=== PATIENT | male | born 1970 | race Caucasian/White ===

== ENCOUNTER 2018-01-27 21:10 | Inpatient (IN) | payer OTHER ==
[~2018-01-27] VITALS: Ht 170.2 cm; Wt 103.6 kg
[~2018-01-27 21:10] MED LIST: ADVAIR DISKUS 51 AER INH; METOPROLOL TART25 M1 PO; ZES10 PO
[2018-01-27 22:06] LABS: UA SPECIFIC GRAVITY >=1.030 (1.005-1.035); microscopic required? YES; urine erythrocyte TRACE (NEGATIVE)
[2018-01-27 22:13] LABS: BASOPHIL % 0.6 % (0-2); CALCIUM 8.3 mg/dL (8.5-10.1); CARBON DIOXIDE 30.2 mmol/L (21-32); CREATININE SERUM 1.4 mg/dL (0.7-1.3); PLATELET COUNT 202 x10^3mcL (130-400); POTASSIUM SERUM 3.5 mmol/L (3.5-5.1); RED CELL DISTRIBUTION WIDTH 13.7 % (11.5-14.5)
[2018-01-27 22:27] LABS: BILIRUBIN TOTAL 0.37 mg/dL (0.20-1.00); FREE T4 1.15 ng/dL (0.76-1.46); TOTAL PROTEIN, SERUM 7.1 g/dL (6.4-8.2)
[2018-01-27 22:34] LABS: ALBUMIN 3.1 g/dL (3.4-5.0)
[2018-01-27 23:20] LABS: AMPHETAMINE QUAL UR POSITIVE (See below)
[2018-01-28 01:21] VITALS: BP 154/97
[2018-01-28 01:51] LABS: CHOLESTEROL/HDL RATIO 2.5; PHOSPHOROUS 3.4 mg/dL (2.5-4.9)
[2018-01-28 06:02] VITALS: BP 145/84
[2018-01-28 06:13] LABS: BASOPHIL % 0.3 % (0-2); PLATELET COUNT 210 x10^3mcL (130-400); RED CELL DISTRIBUTION WIDTH 13.6 % (11.5-14.5)
[2018-01-28 06:19] LABS: CALCIUM 8.4 mg/dL (8.5-10.1); CARBON DIOXIDE 29.2 mmol/L (21-32); CHLORIDE SERUM 102 mmol/L (98-107); CREATININE SERUM 1.3 mg/dL (0.7-1.3); GFR1 > 60 mL/min; GLUCOSE SERUM 110 mg/dL (74-106); POTASSIUM SERUM 3.5 mmol/L (3.5-5.1); SODIUM SERUM 138 mmol/L (136-145)
[2018-01-28 09:30] VITALS: BP 166/98
[2018-01-28 13:55] VITALS: BP 155/94
[2018-01-28 15:27] VITALS: Ht 170.2 cm; Wt 103.6 kg
[2018-01-28 17:46] VITALS: BP 158/99
[2018-01-28 20:37] VITALS: BP 157/94
[2018-01-29] VITALS: BP 155/89
[2018-01-29 05:39] VITALS: BP 156/99
[2018-01-29 07:49] LABS: BASOPHIL % 0.5 % (0-2); PLATELET COUNT 238 x10^3mcL (130-400)
[2018-01-29 07:59] LABS: CALCIUM 8.2 mg/dL (8.5-10.1); CARBON DIOXIDE 29.2 mmol/L (21-32); CHLORIDE SERUM 103 mmol/L (98-107); CREATININE SERUM 1.1 mg/dL (0.7-1.3); GFR1 > 60 mL/min; GLUCOSE SERUM 100 mg/dL (74-106); MAGNESIUM 1.9 mg/dL (1.8-2.4); PHOSPHOROUS 3.4 mg/dL (2.5-4.9); POTASSIUM SERUM 3.9 mmol/L (3.5-5.1); SODIUM SERUM 140 mmol/L (136-145)
[2018-01-29 10:00] VITALS: BP 154/88
[2018-01-29 14:12] VITALS: BP 142/92
[2018-01-29 17:36] VITALS: BP 162/90
[2018-01-29 20:24] VITALS: BP 157/83
[2018-01-30 05:30] VITALS: BP 168/93
[2018-01-30 07:51] LABS: BASOPHIL % 0.3 % (0-2); PLATELET COUNT 263 x10^3mcL (130-400); RED CELL DISTRIBUTION WIDTH 13.6 % (11.5-14.5)
[2018-01-30 07:53] LABS: CALCIUM 8.7 mg/dL (8.5-10.1); CARBON DIOXIDE 31.6 mmol/L (21-32); CHLORIDE SERUM 103 mmol/L (98-107); CREATININE SERUM 1.1 mg/dL (0.7-1.3); GFR1 > 60 mL/min; GLUCOSE SERUM 93 mg/dL (74-106); PHOSPHOROUS 3.7 mg/dL (2.5-4.9); POTASSIUM SERUM 3.8 mmol/L (3.5-5.1); SODIUM SERUM 142 mmol/L (136-145)
[2018-01-30 10:08] VITALS: BP 166/97
[2018-01-30] MEDS ORDERED: CEPHALEXIN500 M1 PO (12:23)
[2018-01-30 13:30] VITALS: BP 141/109; BP 144/89
[2018-01-30 14:10] VITALS: BP 144/89
[2018-01-30] MEDS ORDERED: APR10 PO (16:45)
[2018-01-30] MEDS ORDERED: NOR5 PO (16:45)
== END 2018-01-30 16:55 | disposition home or self-care (01) | DRG 383 ==
LOC: ED 21:10 → DU 01-28 00:07
PROVIDERS: Emergency Medicine; Family Medicine
PROC: 5A09357 Assistance with Respiratory Ventilation, Less than 24 Consecutive Hours, Continuous Positive Airway Pressure (ICD-10-PCS; principal; 2018-01-29)
PROC: 5A09357 Assistance with Respiratory Ventilation, Less than 24 Consecutive Hours, Continuous Positive Airway Pressure (ICD-10-PCS; 2018-01-30)
DX: L03.116 Cellulitis of left lower limb (principal); N17.0 Acute kidney failure with tubular necrosis; J96.01 Acute respiratory failure with hypoxia; N39.0 Urinary tract infection, site not specified; I16.0 Hypertensive urgency; E44.0 Moderate protein-calorie malnutrition; J44.1 Chronic obstructive pulmonary disease with (acute) exacerbation; E66.9 Obesity, unspecified; G47.33 Obstructive sleep apnea (adult) (pediatric); F15.10 Other stimulant abuse, uncomplicated; R80.9 Proteinuria, unspecified; F17.210 Nicotine dependence, cigarettes, uncomplicated; Z91.81 History of falling; Z68.34 Body mass index [BMI] 34.0-34.9, adult; Z91.19 Patient's noncompliance with other medical treatment and regimen; Z82.49 Family history of ischemic heart disease and other diseases of the circulatory system
CPT/HCPCS: 83880; 84439; G0480; J2543; J3370; J3490; J7030; J7040; J7050; J7620; Q0092

== ENCOUNTER 2018-12-29 14:26 | Emergency (ER) | payer OTHER ==
[~2018-12-29] VITALS: Ht 170.2 cm; Wt 104.3 kg
[~2018-12-29 14:26] MED LIST changes: +APR10 PO; +CEPHALEXIN500 M1 PO; +NOR5 PO
[2018-12-29 14:55] VITALS: BP 187/111; Ht 170.2 cm; Wt 104.3 kg
== END 2018-12-29 17:07 | disposition left against medical advice (07) ==
LOC: ED 14:26
DX: Z53.21 Procedure and treatment not carried out due to patient leaving prior to being seen by health care provider (principal)

== ENCOUNTER 2020-01-02 07:07 | Emergency (ER) | payer OTHER ==
[~2020-01-02] VITALS: Ht 170.2 cm; Wt 105.7 kg
[2020-01-02 07:30] VITALS: Ht 170.2 cm; Wt 105.7 kg
[2020-01-02 09:34] LABS: CALCIUM 8.1 mg/dL (8.5-10.1); CARBON DIOXIDE 29.7 mmol/L (21-32); CHLORIDE SERUM 105 mmol/L (98-107); CREATININE SERUM 1.3 mg/dL (0.7-1.3); GFR1 > 60 mL/min; GLUCOSE SERUM 119 mg/dL (74-106); SODIUM SERUM 141 mmol/L (136-145)
[2020-01-02 09:39] LABS: ALBUMIN 3.6 g/dL (3.4-5.0); ALKALINE PHOSPHATASE 107 U/L (46-116); ALT/SGPT 59 U/L (16-63); AST/SGOT 38 U/L (15-37); BILIRUBIN TOTAL 0.3 mg/dL (0.20-1.00); CHOLESTEROL 195 mg/dL (<200); CHOLESTEROL/HDL RATIO 3.8; HDL CHOLESTEROL 51 mg/dL (40-60); TOTAL PROTEIN, SERUM 7.2 g/dL (6.4-8.2); TRIGLYCERIDES 73 mg/dL (<150)
[2020-01-02 09:40] LABS: BASOPHIL % 0.4 % (0-2); PLATELET COUNT 206 x10^3mcL (130-400); RED CELL DISTRIBUTION WIDTH 14.5 % (11.5-14.5)
[2020-01-02 10:23] LABS: AMPHETAMINE QUAL UR POSITIVE (See below)
[2020-01-02 11:43] VITALS: BP 155/99
== END 2020-01-02 11:43 | disposition home or self-care (01) ==
LOC: ED 07:07
PROVIDERS: Specialist
DX: S01.01XA Laceration without foreign body of scalp, initial encounter (principal); J44.9 Chronic obstructive pulmonary disease, unspecified; I10 Essential (primary) hypertension; F15.129 Other stimulant abuse with intoxication, unspecified; W18.09XA Striking against other object with subsequent fall, initial encounter; Y93.89 Activity, other specified; Y92.89 Other specified places as the place of occurrence of the external cause; Y99.8 Other external cause status
CPT/HCPCS: 83880; G0480; J2001; J3490; Q0092